=== PATIENT | female | born 1940 ===

== ENCOUNTER 2016-11-15 16:24 | Emergency (ER) | payer SELFPAY ==
[~2016-11-15] VITALS: Ht 149.9 cm; Wt 50.0 kg
[2016-11-15 16:26] VITALS: BP 127/68; PULSE 85; RESP 14; TEMP 98.6; O2SAT 90
--- NOTE | 2016-11-15 22:35 | RADRPT ---
EXAM DATE/TIME: 11/15/2016 18:43 [place] COMPARISON: No previous studies available for comparison. INDICATIONS : Cough. MEDICAL HISTORY : None. SURGICAL HISTORY : None. ENCOUNTER: Initial ACUITY: 1 week PAIN SCORE: 0/10 LOCATION: Bilateral chest FINDINGS: PA and lateral views of the chest demonstrate the lungs to be symmetrically aerated without evidence of mass, infiltrate or effusion. The lungs are hyperinflated. The cardiac contours are unremarkable. There is a retrocardiac mass likely related to a hiatal hernia. Osseous structures are intact. Clip s are seen in the right upper quadrant presumably from prior cholecystectomy. CONCLUSION: No acute disease. Berlin Macias MD on November 15, 2016 at 22:32 Board Certified Radiologist. This report was verified electronically.
== END 2016-11-15 18:47 | disposition left against medical advice (07) ==
LOC: NED 16:24
DX: R53.1 Weakness (principal)
CPT/HCPCS: 71020; 99281